=== PATIENT | female | born 1965 | race Caucasian/White ===

== ENCOUNTER → 2017-10-25 | Outpatient (CLI) | payer BC ==
--- NOTE | 2017-10-27 08:54 | MM ---
Reason for exam: screening (asymptomatic). Last mammogram was performed 1 year and 5 months ago. Physical Findings: A clinical breast exam by your physician is recommended on an annual basis and results should be correlated with mammographic findings. MG 3D Screening Mammo W/Cad Bilateral CC and MLO view(s) were taken. Prior study comparison: May 14, 2016, bilateral MG 3d screening mammo w/cad. September 21, 2014, bilateral MG diagnostic mammo w CAD SHYAM. October 12, 2012, CAD bilateral diagnostic mammogram. The breast tissue is extremely dense which could obscure a lesion on mammography. No significant changes when compared with prior studies. ASSESSMENT: Negative, BI-RAD 1 RECOMMENDATION: Routine screening mammogram of both breasts in 1 year. Patient should continue monthly self breast exams. A negative mammogram should not preclude additional follow up of suspicious palpable abnormalities.
== END | disposition home or self-care (01) ==
LOC: RADMAMWWP 08:28
PROVIDERS: ATTEND Family Medicine
DX: Z12.31 Encounter for screening mammogram for malignant neoplasm of breast (principal)
CPT/HCPCS: 77063; 77067

== ENCOUNTER → 2018-11-16 | Outpatient (CLI) | payer BC ==
--- NOTE | 2018-11-16 11:16 | MM ---
Reason for exam: screening (asymptomatic). Last mammogram was performed 1 year and 1 month ago. Physical Findings: A clinical breast exam by your physician is recommended on an annual basis and results should be correlated with mammographic findings. MG 3D Screening Mammo W/Cad Bilateral CC and MLO view(s) were taken. Prior study comparison: October 25, 2017, bilateral MG 3d screening mammo w/cad. May 14, 2016, bilateral MG 3d screening mammo w/cad. The breast tissue is extremely dense which could obscure a lesion on mammography. No suspicious abnormality on the right. Left upper outer quadrant subtle focal asymmetry may simply represent dense tissue as no discrete mass on 3D, however, precautionary ultrasound will be performed. Upper outer quadrant overlapping vessels also seen. These results were verbally communicated with the patient and result sheet given to the patient on 11/16/18. ASSESSMENT: Incomplete: need additional imaging evaluation, BI-RAD 0 RECOMMENDATION: Ultrasound of the left breast. upper outer quadrant
--- NOTE | 2018-11-16 11:18 | USB ---
Reason for exam: additional evaluation requested from abnormal screening. Physical Findings: Nurse did not find any significant physical abnormalities on exam. US Breast Workup Limited LT Left limited breast ultrasound including focal area of concern, retroareolar and axilla demonstrates no cystic or solid lesion seen. No suspicious finding, no solid or cystic mass. Dense tissue throughout. These results were verbally communicated with the patient and result sheet given to the patient on 11/16/18. ASSESSMENT: Negative, BI-RAD 1 RECOMMENDATION: Return to routine screening mammogram schedule for both breasts.
== END | disposition home or self-care (01) ==
LOC: RADMAMWWP 09:43
PROVIDERS: ATTEND Family Medicine
DX: Z12.13 Encounter for screening for malignant neoplasm of small intestine (principal); R92.8 Other abnormal and inconclusive findings on diagnostic imaging of breast
CPT/HCPCS: 77063; 77067

== ENCOUNTER → 2019-05-27 | Outpatient (CLI) | payer BC ==
--- NOTE | 2019-05-27 11:41 | MR ---
EXAMINATION TYPE: MR knee LT wo con DATE OF EXAM: 05/27/2019 11:24 AM COMPARISON: NONE HISTORY: Lt knee pain TECHNIQUE: Multiplanar, multiecho imaging of the left knee is performed without IV contrast. FINDINGS: There is only a small amount of fluid in the left AC joint. This is partially D, passed int o the gastrocnemius semimembranosus bursa. There is some grade I to II chondromalacia involving the weightbearing surface of the lateral femoral condyle. There is also some grade I to II chondromalacia involving the weightbearing surface of the medial femoral condyle. There is no significant chondromalacia patella. Both menisci appear intact. Both the anterior and posterior cruciate ligaments are intact. Both the medial and lateral collateral ligament complexes are intact. The iliotibial band inserts nor robbin upon Gerdy's tubercle. The popliteus muscle and tendon are intact. Both quadriceps and patellar tendons are intact. There is no significant swelling in the Hoffa fat sp abdoulaye. No definite bony bruising is seen. IMPRESSION: 1. MINIMAL CHONDROMALACIA. 2. NO SIGNIFICANT LIGAMENTOUS OR MENISCAL INJURY. 3. SMALL AMOUNT OF FLUID IN THE GASTROCNEMIUS SEMIMEMBRANOSUS BURSA.
== END | disposition home or self-care (01) ==
LOC: RADMRIMAIN 10:39
PROVIDERS: ATTEND Orthopaedic Surgery
DX: M94.262 Chondromalacia, left knee (principal)

== ENCOUNTER → 2019-05-29 | Outpatient (CLI) | payer BC ==
--- NOTE | 2019-05-29 13:05 | MR ---
MR right elbow HISTORY: Lateral epicondylitis Multiplanar multisequence imaging through the right elbow No comparisons There is fluid present near the origin of the conjoined tendon of the common extensor tendon. Partial tear of the conjoined tendon is present. Articular cartilage is intact. Common flexor tendon is inta ct. No evident joint effusion. Triceps tendon is intact. Muscle signal is maintained. Biceps tendon s hows normal insertion. Bone marrow signal is maintained. IMPRESSION: Partial tear origin of common extensor tendon
== END | disposition home or self-care (01) ==
LOC: RADMRIMAIN 09:29
PROVIDERS: ATTEND Orthopaedic Surgery
DX: S46.811A Strain of other muscles, fascia and tendons at shoulder and upper arm level, right arm, initial encounter (principal)

== ENCOUNTER 2019-10-25 11:06 | Outpatient (CLI) | payer BC | END 2019-10-25 11:43 | disposition home or self-care (01) | LOC: LABWHC1 11:06 | PROVIDERS: ATTEND Family Medicine | DX: Z53.9 Procedure and treatment not carried out, unspecified reason (principal) ==

== ENCOUNTER → 2019-11-21 | Outpatient (CLI) | payer BC ==
--- NOTE | 2019-11-21 13:17 | US ---
EXAMINATION TYPE: US transvaginal DATE OF EXAM: 11/21/2019 COMPARISON: NONE CLINICAL HISTORY: N95.0 POSTMENOPAUSAL BLEEDING. Patient states having a period in August after not zuñiga ving one in a long time. TECHNIQUE: Transvaginal (TV). Date of LMP: August 2019, EXAM MEASUREMENTS: Uterus: 7.5 x 5.3 x 4.4 cm Endometrial Stripe: 0.5 cm Right Ovary: 2.4 x 1.4 x 1.3 cm Left Ovary: 3.0 x 1.8 x 1.2 cm 1. Uterus: Retroverted Prominent peripheral vessels visualized. Hypoechoic lesion seen adjacent to endometrium - 0.3 x 0.3 x 0.2 cm 2. Endometrium: Trace amount of fluid visualized within fundal portion of endometrium cavity 3. Right Ovary: wnl 4. Left Ovary: Cystic appearing lesion = 2.2 x 1.5 x 1.4 cm 5. Bilateral Adnexa: Prominent vessels seen in bilateral adnexa 6. Posterior cul-de-sac: Free fluid seen adjacent to uterine fundus IMPRESSION: 1. Nonspecific subendometrial lesion is difficult to exclude. 2. Periuterine varices noted. Correlate for pelvic congestion syndrome. 3. Left ovarian cystic change.
== END | disposition home or self-care (01) ==
LOC: RADUSWWP 09:40
PROVIDERS: ATTEND Family Medicine
DX: N83.202 Unspecified ovarian cyst, left side (principal); I86.2 Pelvic varices
CPT/HCPCS: 76830

== ENCOUNTER → 2020-04-03 | Outpatient (CLI) | payer BC ==
--- NOTE | 2020-04-04 12:38 | US ---
EXAMINATION TYPE: US pelvis complete transvag DATE OF EXAM: 04/03/2020 COMPARISON: US pelvis 11/21/2019 CLINICAL HISTORY: N83.202 left ovarian cyst. Follow up to left ovarian cyst TECHNIQUE: . Transabdominal sonographic images of the pelvis were acquired. Transvaginal sonographi c images were medically necessary to better assess the following anatomy: Uterus and ovaries Date of LMP: October 2019 EXAM MEASUREMENTS: Uterus: 6.0 x 3.0 x 3.3 cm Endometrial Stripe: 0.25 cm Right Ovary: 2.4 x 1.0 x 1.5 cm Left Ovary: 2.2 x 1.2 x 1.0 cm 1. Uterus: Retroverted Heterogeneous 2. Endometrium: Normal 3. Right Ovary: Normal 4. Left Ovary: Normal 5. Bilateral Adnexa: Normal 6. Posterior cul-de-sac: Trace amount of free fluid visualized IMPRESSION: 1. No ovarian cysts bilaterally. Unremarkable ovaries. 2. Previously questioned subendometrial lesion on 11/21/2019 ultrasound is not seen on current exam. 3. Trace pelvic free fluid.
== END | disposition home or self-care (01) ==
LOC: RADUSWWP 16:23
PROVIDERS: ATTEND Specialist
DX: N83.202 Unspecified ovarian cyst, left side (principal)
CPT/HCPCS: 76830; 76856

== ENCOUNTER → 2020-07-12 | Outpatient (CLI) | payer BC ==
--- NOTE | 2020-07-13 02:49 | MR ---
EXAMINATION TYPE: MR shoulder LT wo con DATE OF EXAM: 07/12/2020 COMPARISON: None HISTORY: Left shoulder pain, S/P fall March 2020 Multiplanar multiecho imaging of the left shoulder was performed with no contrast. Biceps tendon is intact. Subscapularis tendon appears normal. There is some fluid around the biceps t endon. There is mild increased signal in the supraspinatus tendon over the top of the humeral head. There is no retraction. I do not see a definite full-thickness defect. There is some mild fluid in the subdel toid bursa. The AC joint is intact. There is no subacromial impingement. I see no focal bone destruct ion. There are small degenerative cysts in the greater tuberosity of the humerus. The scapula appears intact. Glenoid anamaria appear intact. IMPRESSION: Mild subdeltoid effusion consistent with bursitis. Mild increased signal in the supraspinatus tendon consistent with mild tendinitis. No full-thickness tear seen. No fracture seen. Small degenerative cysts in the greater tuberosity of the humerus.
== END | disposition home or self-care (01) ==
LOC: RADMRIMAIN 16:00
PROVIDERS: ATTEND Orthopaedic Surgery
DX: M85.612 Other cyst of bone, left shoulder (principal); M25.412 Effusion, left shoulder; R93.7 Abnormal findings on diagnostic imaging of other parts of musculoskeletal system

== ENCOUNTER → 2020-09-26 | Outpatient (CLI) | payer BC ==
--- NOTE | 2020-09-30 10:51 | MM ---
Reason for exam: screening (asymptomatic). Last mammogram was performed 1 year and 10 months ago. History: Patient is postmenopausal. Physical Findings: A clinical breast exam by your physician is recommended on an annual basis and results should be correlated with mammographic findings. MG 3D Screening Mammo W/Cad Bilateral CC and MLO view(s) were taken. Prior study comparison: November 16, 2018, bilateral MG 3d screening mammo w/cad. October 25, 2017, bilateral MG 3d screening mammo w/cad. May 14, 2016, bilateral MG 3d screening mammo w/cad. The breast tissue is extremely dense which could obscure a lesion on mammography. 8mm nodule posterior left MLO just above the retroareolar plane becomes apparent on 3D. Right MLO inferior asymmetric density incompletely disperses on 3D. ASSESSMENT: Incomplete: need additional imaging evaluation, BI-RAD 0 RECOMMENDATION: Special view mammogram of both breasts. (3D) If lesion persists on supplemental views, image directed ultrasound is recommended. [facility] will attempt to contact patient to return for supplemental views and ultrasound if indicated.
== END | disposition home or self-care (01) ==
LOC: RADMAMWWP 14:02
PROVIDERS: ATTEND Family Medicine
DX: Z12.31 Encounter for screening mammogram for malignant neoplasm of breast (principal)
CPT/HCPCS: 77063; 77067

== ENCOUNTER → 2020-10-03 | Outpatient (CLI) | payer BC ==
--- NOTE | 2020-10-03 11:51 | MM ---
Reason for exam: additional evaluation requested from abnormal screening. Last mammogram was performed less than 1 month ago. History: Patient is postmenopausal. Took hormonal contraceptives beginning at age 17. Physical Findings: Nurse did not find any significant physical abnormalities on exam. MG 3D Work Up W/Cad SHYAM Bilateral LM and spot compression MLO view(s) were taken. Prior study comparison: September 26, 2020, bilateral MG 3d screening mammo w/cad. November 16, 2018, bilateral MG 3d screening mammo w/cad. The breast tissue is heterogeneously dense. This may lower the sensitivity of mammography. Finding: There is a 7 mm equal density (isodense), lobulated mass in the upper quadrant, posterior position of the left breast. These results were verbally communicated with the patient and result sheet given to the patient on 10/03/20. ASSESSMENT: Incomplete: need additional imaging evaluation, BI-RAD 0 RECOMMENDATION: Ultrasound of the left breast.
--- NOTE | 2020-10-03 11:52 | USB ---
Reason for exam: additional evaluation requested from abnormal screening. History: Patient is postmenopausal. Took hormonal contraceptives beginning at age 17. US Breast Workup Limited LT Left limited breast ultrasound including focal area of concern, retroareolar and axilla demonstrates no cystic or solid lesion seen. These results were verbally communicated with the patient and result sheet given to the patient on 10/03/20. ASSESSMENT: Probably benign, BI-RAD 3 RECOMMENDATION: Follow-up diagnostic mammogram of both breasts in 6 months.
== END | disposition home or self-care (01) ==
LOC: RADMAMWWP 09:49
PROVIDERS: ATTEND Family Medicine
DX: N64.89 Other specified disorders of breast (principal); N63.20 Unspecified lump in the left breast, unspecified quadrant; Z78.0 Asymptomatic menopausal state
CPT/HCPCS: 77062; 77066

== ENCOUNTER → 2021-07-16 | Outpatient (CLI) | payer BC ==
--- NOTE | 2021-07-16 12:00 | MM ---
Reason for exam: follow-up at short interval from prior study. Last mammogram was performed 9 months ago. History: Patient is postmenopausal. Took hormonal contraceptives beginning at age 17. Physical Findings: Nurse did not find any significant physical abnormalities on exam. MG 3D Diag Mammo W/Cad SHYAM Bilateral CC and MLO view(s) were taken. LM, spot compression CC, and spot compression MLO view(s) were taken of the left breast. Prior study comparison: October 03, 2020, bilateral MG 3d work up w/cad [facility]. September 26, 2020, bilateral MG 3d screening mammo w/cad. The breast tissue is extremely dense which could obscure a lesion on mammography. There is no discrete abnormality including area of concern. No significant new findings when compared with previous films. These results were verbally communicated with the patient and result sheet given to the patient on 07/16/21. ASSESSMENT: Benign, BI-RAD 2 RECOMMENDATION: Routine screening mammogram of both breasts in 1 year.
== END | disposition home or self-care (01) ==
LOC: RADMAMWWP 11:00
PROVIDERS: ATTEND Family Medicine
DX: R92.8 Other abnormal and inconclusive findings on diagnostic imaging of breast (principal)
CPT/HCPCS: 77062; 77066

== ENCOUNTER → 2022-01-08 | Outpatient (CLI) | payer BC ==
--- NOTE | 2022-01-08 21:48 | MR ---
EXAMINATION TYPE: MR shoulder RT wo con DATE OF EXAM: 01/08/2022 COMPARISON: None available HISTORY: RIGHT SHOULDER PAIN TECHNIQUE: Multiplanar, multisequence imaging of the right shoulder is performed without contrast. FINDINGS: Rotator Cuff: There is 1 x 0.5 cm full-thickness tear of the supraspinatus tendon anterior fibers on the background of moderate tendinosis. There is additional component of myotendinous junction tear wi th small amount of low tracking along the subacromial space. There is associated moderate soft tissue edema. No significant muscle atrophy. The subscapularis, infraspinatus and teres minor tendons are g rossly intact. Acromioclavicular Joint: Mild osteoarthritis. Glenohumeral Joint: Mild to moderate osteoarthritis Labrum: Degenerative SLAP type tear. Biceps Tendon: The long head of biceps is in normal location within bicipital groove. Moderate tendin osis of the intra-articular long head biceps tendon, otherwise intact. Small fluid is seen within the long head biceps tendon sheath. Bone marrow signal: Increased T2 bone marrow signal in the acromioclavicular joint involving the dist al clavicle. No acute fracture or dislocation. Other: No additional significant abnormality is appreciated. IMPRESSION: Small to moderate-sized full-thickness tear of the supraspinatus tendon with component of myotendinou s junction tear. Associated muscular edema and subacromial-subdeltoid bursitis. Increased bone marrow signal in the acromioclavicular joint involving the distal clavicle. Findings m ay be reactive or can be seen with repetitive microtrauma. No acute fracture.
== END | disposition home or self-care (01) ==
LOC: RADMRIMAIN 12:55
PROVIDERS: ATTEND Orthopaedic Surgery
DX: S43.431A Superior glenoid labrum lesion of right shoulder, initial encounter (principal); M75.111 Incomplete rotator cuff tear or rupture of right shoulder, not specified as traumatic; M75.41 Impingement syndrome of right shoulder; X58.XXXA Exposure to other specified factors, initial encounter

== ENCOUNTER → 2022-08-26 | Outpatient (CLI) | payer BC ==
--- NOTE | 2022-08-25 17:01 | MM ---
Reason for Exam: Screening (asymptomatic). Last mammogram was performed 1 year(s) and 1 month(s) ago. Patient History: Menarche at age 13. First Full-Term at age 28. Late child-bearing (after 30). Postmenopausal. Hormonal Contraceptives, from age 17 until age 37. Risk Values: Dunia 5 year model risk: 1.7%. NCI Lifetime model risk: 9.6%. Prior Study Comparison: 09/26/2020 Bilateral Screening Mammogram, [facility]. 10/03/2020 Bilateral Diagnostic Mammogram, [facility]. 07/16/2021 Bilateral Diagnostic Mammogram, [facility]. Tissue Density: The breast tissue is extremely dense which could obscure a lesion on mammography. Findings: Analyzed By CAD. Pattern appears symmetrical and stable. No significant interval change. No suspicious groups of microcalcifications, spiculated or lobular masses, architectural distortion or other secondary signs of malignancy are mammographically apparent. Overall Assessment: Negative, BI-RAD 1 Management: Screening Mammogram of both breasts in 1 year. A negative mammogram report should not preclude additional follow up of suspicious palpable abnormalities. Patient should continue monthly self breast exam. A clinical breast exam by your physician is recommended on an annual basis and results should be correlated with mammographic findings. Electronically signed and approved by: Isma Crews D.O. Radiologis
== END | disposition home or self-care (01) ==
LOC: RADMAMWWP 12:00
PROVIDERS: ATTEND Family Medicine
DX: Z12.31 Encounter for screening mammogram for malignant neoplasm of breast (principal); Z78.0 Asymptomatic menopausal state
CPT/HCPCS: 77063; 77067

== ENCOUNTER → 2023-08-27 | Outpatient (CLI) | payer BC ==
--- NOTE | 2023-08-27 12:29 | MM ---
Reason for Exam: Screening (asymptomatic). Last screening mammogram was performed 12 month(s) ago. Patient History: Menarche at age 13. First Full-Term at age 28. Late child-bearing (after 30). Postmenopausal. Patient has history of breast feeding. Hormonal Contraceptives, from age 17 until age 37. Risk Values: Dunia 5 year model risk: 1.7%. NCI Lifetime model risk: 9.4%. Prior Study Comparison: 05/14/2016 Bilateral Screening Mammogram, [facility]. 10/25/2017 Bilateral Screening Mammogram, [facility]. 11/16/2018 Bilateral Screening Mammogram, [facility]. 09/26/2020 Bilateral Screening Mammogram, [facility]. 10/03/2020 Bilateral Diagnostic Mammogram, [facility]. 07/16/2021 Bilateral Diagnostic Mammogram, [facility]. 08/24/2022 Bilateral MG 3D screening mammo w/cad, [facility]. Tissue Density: The breasts are extremely dense, which lowers the sensitivity of mammography. Findings: Analyzed By CAD. Right breast: There is no suspicious group of microcalcifications or new suspicious mass. Left breast: There is no suspicious group of microcalcifications or new suspicious mass. There is no suspicious group of microcalcifications or new suspicious mass. Overall Assessment: Negative, BI-RAD 1 Management: Screening Mammogram of both breasts in [address] [facility] will attempt to contact patient to return for supplemental views and ultrasound if indicated. Patient should continue monthly self-breast exams. A clinical breast exam by your physician is recommended on an annual basis. This exam should not preclude additional follow-up of suspicious palpable abnormalities. Note on Dunia scores and lifetime risk: 1. A Dunia score greater than 3% is considered moderate risk. If this is the case, consider specialist referral to assess eligibility for a risk reducing agent. 2. If overall lifetime risk for the development of breast cancer is 20% or higher, the patient may qualify for future screening with alternating mammogram and breast MRI. Electronically signed and approved by: Julian Orr DO
--- NOTE | 2023-08-27 12:49 | BD ---
EXAMINATION TYPE: Axial Bone Density DATE OF EXAM: 08/27/2023 CLINICAL HISTORY: 57 years old Female. ICD-10 CODE: Z13.820 screen osteoporosis Height: 62.7in Weight: 131lb FRAX RISK QUESTIONS: History of Fracture in Adulthood: yes Secondary Osteoporosis: RISK FACTORS HISTORY OF: MEDICATIONS: EXAM MEASUREMENTS: Bone mineral densitometry was performed using the [employer]. Bone mineral density as measured about the Lumbar spine is: ----- L1-L4(G/cm2): 0.844 T Score Values are as follows: ----- L1: -3.6 ----- L2: -3.1 ----- L3: -2.5 ----- L4: -2.4 ----- L1-L4: -2.8 Z Score Values are as follows: ----- L1: -2.2 ----- L2: -1.7 ----- L3: -1.1 ----- L4: -1.1 ----- L1-L4: -1.4 Bone mineral density has: Decreased -19.5% since study of: 05-14-16 Bone mineral density about the R hip (g/cm2): 0.696 Bone mineral density about the L hip (g/cm2): 0.819 T Score values are as follows: -----R Neck: -2.2 -----L Neck: -1.8 -----R Total: -2.5 -----L Total: -1.5 Z Score values are as follows: -----R Neck: -0.9 -----L Neck: -0.5 -----R Total: -1.4 -----L Total: -0.5 Bone mineral density has: Decreased -22.7% since study of: 05-14-16 FRAX%s: The graph provided illustrates a 17.3% chance for a major osteoporotic fx and a 2.9% chance f or the hips probability for fx in 10 years time. IMPRESSION: Osteoporosis (T Score less than -2.5). There is increased fracture risk and therapy is usually indicated based on age. Re-Screen 1-2 years. NOTE: T-SCORE=SD OF THE YOUNG ADULT MEAN.
== END | disposition home or self-care (01) ==
LOC: RADMAMWWP 11:47
PROVIDERS: ATTEND Family Medicine
DX: Z12.31 Encounter for screening mammogram for malignant neoplasm of breast (principal); Z13.820 Encounter for screening for osteoporosis; M81.0 Age-related osteoporosis without current pathological fracture; M85.89 Other specified disorders of bone density and structure, multiple sites; Z78.0 Asymptomatic menopausal state
CPT/HCPCS: 77063; 77067; 77080

== ENCOUNTER → 2024-12-05 | Outpatient (CLI) | payer BC ==
--- NOTE | 2024-12-05 17:55 | MM ---
Reason for Exam: Screening (asymptomatic). Last mammogram was performed 1 year(s) and 4 month(s) ago. Patient History: Menarche at age 13. First Full-Term at age 28. Late child-bearing (after 30). Postmenopausal. Patient has history of breast feeding. Hormonal Contraceptives, from age 17 until age 37. Risk Values: Dunia 5 year model risk: 1.9%. NCI Lifetime model risk: 8.9%. Prior Study Comparison: 05/14/2016 Bilateral Screening Mammogram, [facility]. 10/25/2017 Bilateral Screening Mammogram, [facility]. 11/16/2018 Bilateral Screening Mammogram, [facility]. 09/26/2020 Bilateral Screening Mammogram, [facility]. 10/03/2020 Bilateral Diagnostic Mammogram, [facility]. 07/16/2021 Bilateral Diagnostic Mammogram, [facility]. 08/24/2022 Bilateral MG 3D screening mammo w/cad, [facility]. 08/27/2023 Bilateral MG 3D screening mammo w/cad, [facility]. Tissue Density: The breasts are extremely dense, which lowers the sensitivity of mammography. Findings: Analyzed By CAD. There is no suspicious group of microcalcifications or new suspicious mass in either breast. Overall Assessment: Negative, BI-RAD 1 Management: Screening Mammogram of both breasts in 1 year. Given the patient's extremely dense breast tissue, consideration can be given to supplementary screening with breast ultrasound. Patient should continue monthly self-breast exams. A clinical breast exam by your physician is recommended on an annual basis. This exam should not preclude additional follow-up of suspicious palpable abnormalities. Note on Dunia scores and lifetime risk: 1. A Dunia score greater than 3% is considered moderate risk. If this is the case, consider specialist referral to assess eligibility for a risk reducing agent. 2. If overall lifetime risk for the development of breast cancer is 20% or higher, the patient may qualify for future screening with alternating mammogram and breast MRI. [facility], , 12/05/2024 5:53 PM. Electronically signed and approved by: Gus Buitrago M.D. Radiologist
== END | disposition home or self-care (01) ==
LOC: RADMAMWWP 11:13
PROVIDERS: ATTEND Family Medicine
DX: Z12.31 Encounter for screening mammogram for malignant neoplasm of breast (principal); R92.343 Mammographic extreme density, bilateral breasts; Z78.0 Asymptomatic menopausal state; Z92.0 Personal history of contraception
CPT/HCPCS: 77063; 77067